=== PATIENT | female | born 1960 | race Caucasian/White ===

== ENCOUNTER → 2016-09-10 07:42 | Outpatient (CLI) | payer BC | END | disposition home or self-care (01) | LOC: D.CT 07:42 | DX: R10.9 Unspecified abdominal pain (principal) ==

== ENCOUNTER → 2016-12-24 13:33 | Outpatient (CLI) | payer BC | END | disposition home or self-care (01) | LOC: D.MRI 13:33 | DX: M54.16 Radiculopathy, lumbar region (principal) ==

== ENCOUNTER 2017-01-05 13:08 | Emergency (ER) | payer BC ==
[2017-01-05 14:51] LABS: BASOPHILS 0.5 % (0-2); EOSINOPHILS 1.5 % (0-7); HEMATOCRIT 39.3 % (36.0-48.0); HEMOGLOBIN 13.2 g/dL (12-16); IMMATURE GRANULOCYTES 0.2 % (0-5); MCH 33.1 pg (26.0-34.0); MCHC 33.6 g/dL (31.0-37.0); MCV 98.5 fL (80.0-100.0); MEAN PLATELET VOLUME 10.5 fL (7.4-10.4); MONOCYTES 11.5 % (2-11); NEUTROPHILS 53.3 % (40-80); PLATELET COUNT 197 10x3/uL (130-400); RBC 3.99 10x6/uL (4.00-5.40); RDW 14.2 % (11.5-14.5); WBC 6.5 10x3/uL (4.8-10.8)
== END 2017-01-05 15:15 | disposition home or self-care (01) ==
LOC: D.ER 13:08
PROVIDERS: Emergency Medicine
DX: M54.5 Low back pain (principal); S90.32XA Contusion of left foot, initial encounter; S90.02XA Contusion of left ankle, initial encounter; V49.9XXA Car occupant (driver) (passenger) injured in unspecified traffic accident, initial encounter